=== PATIENT | male | born 1970 | race Caucasian/White ===

== ENCOUNTER 2018-12-10 14:31 | Observation (INO) | payer BC ==
[2018-12-10] MEDS ORDERED: ASPIRIN 81 MG PO STA (14:47)
[2018-12-10 15:10] LABS: Basophils % (A) 0 %; Eosinophils # (A) 0.4 k/uL (0-0.7); Eosinophils % (A) 5 %; HCT 44.6 % (39.0-53.0); HGB 14.9 gm/dL (13.0-17.5); Lymphocytes # (A) 2.2 k/uL (1.0-4.8); Lymphocytes % (A) 25 %; MCH 27.8 pg (25.0-35.0); MCHC 33.5 g/dL (31.0-37.0); Mean Platelet Volume 6.7; Monocytes # (A) 0.5 k/uL (0-1.0); Monocytes % (A) 6 %; Neutrophils # (A) 5.7 k/uL (1.3-7.7); Neutrophils % (A) 63 %; Platelet Count 321 k/uL (150-450); RBC 5.38 m/uL (4.30-5.90); RDW 12.9 % (11.5-15.5); WBC 9.1 k/uL (3.8-10.6)
--- NOTE | 2018-12-10 15:12 | XR ---
EXAMINATION TYPE: XR chest 2V DATE OF EXAM: 12/10/2018 COMPARISON: None INDICATION: Chest pain history of asthma TECHNIQUE: Frontal and lateral views of the chest are obtained. FINDINGS: The heart size is normal. The pulmonary vasculature is normal. The lungs are clear. IMPRESSION: 1. No acute pulmonary process.
[2018-12-10] MEDS ORDERED: NITROGLYCERIN OINT 1 INCH/GM PACKET TOPICAL STA (15:15)
--- NOTE | 2018-12-10 15:15 | ED ---
Chest Pain HPI - General Chief Complaint: Chest Pain Stated Complaint: chest pressure Time Seen by Provider: 12/10/18 14:47 Source: patient, RN notes reviewed Mode of arrival: wheelchair Limitations: no limitations - History of Present Illness Initial Comments: 48-year-old male presents emergency Department with chief complaint of chest pain. Patient states that he's had on-and-off symptoms for a while but has worsened recently. Saw Dr. Carlson his PCP today was given nitro and aspirin states that the nitro alleviated symptoms. Patient did have a heart cath several years ago secondary to strong family history Patient states he also has a history of hypertension former smoker. Patient denies diabetes states he has mildly elevated cholesterol does not take any current medications. - Related Data Home Medications Medication Instructions Recorded Confirmed Albuterol Inhaler [Ventolin Hfa 1 - 2 puff INHALATION RT-Q6H PRN 01/28/16 Inhaler] Lisinopril [Prinivil] 5 mg PO DAILY 01/28/16 12/10/18 Citalopram Hydrobromide [CeleXA] 20 mg PO HS 12/10/18 12/10/18 Allergies Allergy/AdvReac Type Severity Reaction Status Date / Time No Known Allergies Allergy Verified 12/10/18 15:35 Review of Systems ROS Statement: Those systems with pertinent positive or pertinent negative responses have been documented in the HPI. ROS Other: All systems not noted in ROS Statement are negative. EKG Findings - EKG Comments: EKG Findings:: EKG performed at 14:48 normal sinus rhythm with a rate of 85 IL 150 QRS 94 QT/QTC 382/454 Past Medical History Past Medical History: Asthma, Hypertension History of Any Multi-Drug Resistant Organisms: None Reported Past Surgical History: Appendectomy, Hernia Repair Past Psychological History: No Psychological Hx Reported Smoking Status: Former smoker Past Alcohol Use History: Rare Past Drug Use History: None Reported General Exam Limitations: no limitations General appearance: alert, in no apparent distress Head exam: Present: atraumatic, normocephalic, normal inspection Eye exam: Present: normal appearance, PERRL, EOMI. Absent: scleral icterus, conjunctival injection, periorbital swelling ENT exam: Present: normal exam, normal oropharynx, mucous membranes moist Neck exam: Present: normal inspection. Absent: tenderness, meningismus, lymphadenopathy Respiratory exam: Present: normal lung sounds bilaterally. Absent: respiratory distress, wheezes, rales, rhonchi, stridor Cardiovascular Exam: Present: regular rate, normal rhythm, normal heart sounds. Absent: systolic murmur, diastolic murmur, rubs, gallop, clicks GI/Abdominal exam: Present: soft, normal bowel sounds. Absent: distended, tenderness, guarding, rebound, rigid Course Vital Signs 12/10/18 14:37 Temperature 98.3 F Pulse Rate 95 Respiratory 16 Rate Blood Pressure 167/101 O2 Sat by Pulse 96 Oximetry Chest Pain MDM - [facility] 48-year-old male presented for chest pain. Patient had workup including lab comes chest x-ray and EKG. This is unremarkable though he does have strong family history pain and alleviated with nitro signed by PCP for admission. Patient placed on heparin with cardiology consult. Disposition Clinical Impression: Chest pain Disposition: ADMITTED IP TO THIS HOSP Condition: Fair Referrals: Serafin Carlson MD [Primary Care Provider] - 1-2 days
[2018-12-10 15:20] LABS: ALT 25 U/L (21-72); AST 25 U/L (17-59); Albumin 4.3 g/dL (3.5-5.0); Alkaline Phosphatase 77 U/L (38-126); Anion Gap 9 mmol/L; Blood Urea Nitrogen 9 mg/dL (9-20); Calcium 9.4 mg/dL (8.4-10.2); Carbon Dioxide 26 mmol/L (22-30); Chloride 104 mmol/L (98-107); Glucose 171 mg/dL (74-99); Magnesium 2.1 mg/dL (1.6-2.3); Partial Thromboplastin Time 25.1 sec (22.0-30.0); Potassium 3.8 mmol/L (3.5-5.1); Prothrombin Time 10.4 sec (9.0-12.0); Sodium 139 mmol/L (137-145); Total Bilirubin 0.5 mg/dL (0.2-1.3); Total Protein 7.8 g/dL (6.3-8.2)
[2018-12-10 15:32] LABS: Creatine Kinase 115 U/L (55-170)
[2018-12-10 15:45] LABS: Creatine Kinase MB 1.1 ng/mL (0.0-2.4); Troponin I <0.012 ng/mL (0.000-0.034)
[2018-12-10] MEDS ORDERED: HEPARIN SODIUM,PORCINE 5,000 UNIT/ML 1 ML VIAL IV ONE (15:50)
[2018-12-10] MEDS ORDERED: NITROGLYCERIN SL TABS 0.4 MG TAB SUBLINGUAL PRN (15:50)
[2018-12-10] MEDS ORDERED: HEPARIN SOD,PORK IN 0.45% NACL 25,000 UNIT in 0.45% NACL 1 250ML.BAG IV SCH (16:00)
[2018-12-10] MEDS ORDERED: LABETALOL SYRINGE 5 MG/ML IVP STA (16:04)
[2018-12-10] MEDS ORDERED: HEPARIN SODIUM,PORCINE 5,000 UNIT/ML 1 ML VIAL IV PRN (20:29)
[2018-12-10] MEDS ORDERED: ACETAMINOPHEN TAB 325 MG TAB PO PRN (21:00)
[2018-12-10 21:26] LABS: Creatine Kinase 98 U/L (55-170)
[2018-12-10 21:39] LABS: Creatine Kinase MB 1.1 ng/mL (0.0-2.4); Troponin I <0.012 ng/mL (0.000-0.034)
[2018-12-11 02:25] LABS: Creatine Kinase 93 U/L (55-170)
[2018-12-11 02:39] LABS: Creatine Kinase MB 1.1 ng/mL (0.0-2.4); Troponin I <0.012 ng/mL (0.000-0.034)
[2018-12-11 06:06] LABS: Mean Platelet Volume 6.2; Platelet Count 284 k/uL (150-450)
[2018-12-11 06:19] LABS: Cholesterol 182 mg/dL (<200); HDL Cholesterol 36 mg/dL (40-60); LDL Cholesterol,Calculated 93 mg/dL (0-99); Triglycerides 266 mg/dL (<150)
[2018-12-11] MEDS ORDERED: LISINOPRIL 5 MG TAB PO SCH (09:00)
[2018-12-11] MEDS ORDERED: LISINOPRIL 10 MG TAB PO SCH (09:00)
--- NOTE | 2018-12-11 10:55 | P.CRDCN ---
History of Present Illness History of present illness: This is a pleasant 48-year-old male past medical history significant for hypertension, asthma and obesity. He denies history of coronary artery disease and is never seen a practical nursing faculty for any reason. If necessary consultation for chest pain. He states for the previous few weeks he has been feeling a tight sensation in the midsternal region typically at night when he lays down in bed. Although he does also experience these episodes of tightness sometimes throughout the day. The discomfort does not radiate through to his back, down his arms, into his neck or jaw. He denies associated shortness of breath, dizziness, palpitations, diaphoresis, nausea or vomiting. He states the pain is a very mild tight sensation last anywhere from one to 2 minutes to possibly 30 minutes at the longest. He has not started to take any over-the- counter antacids for relief of this pain at [facility] on its own. He does not have a very active job however he states when he is physically exerting himself he does not notice any having any tightness in his chest. EKG reveals sinus mechanism with no acute ST or T wave abnormalities noted. Chest x-ray is negative for an acute cardiopulmonary process. Laboratory data reviewed, WBC 9.1, hemoglobin 14.9, platelets 284, sodium 139, potassium 3.8, creatinine 0.84, magnesium 2.1, cardiac enzymes negative 3, LDL 93 and HDL 36. Current cardiac medications include lisinopril 5 mg daily. He underwent a Cardiolite stress test and an echocardiogram in 2013 was negative for reversible cardiac ischemia with preserved LV systolic function ejection fraction 55-60%. At the time of my exam: CONSTITUTIONAL: Denies fever. Denies chills. EYES: Denies blurred vision. Denies vision changes. Denies eye pain. EARS, NOSE, MOUTH & THROAT: Denies headache. Denies sore throat. Denies ear pain. CARDIOVASCULAR: Denies chest pain. Denies shortness of breath. Denies orthopnea. Denies PND. Denies palpitations. RESPIRATORY: Denies cough. GASTROINTESTINAL: Denies abdominal pain. Denies diarrhea. Denies constipation. Denies nausea. Denies vomiting. MUSCULOSKELETAL: Denies myalgias. INTEGUMENTARY: Denies pruitis. Denies rash. NEUROLOGIC: Denies numbness. Denies tingling. Denies weakness. PSYCHIATRIC: Denies anxiety. Denies depression. ENDOCRINE: Denies fatigue. Denies weight change. Denies polydipsia. Denies polyurina. GENITOURINARY: Denies burning, hematuria or urgency with micturation. HEMATOLOGIC: Denies history of anemia. Denies bleeding. Blood pressure 146/90 heart rate 71 afebrile maintaining oxygen saturation on room air GENERAL: This is a 48-year-old male in no apparent distress at the time of my examination. Obese. HEENT: Head is atraumatic, normocephalic. Pupils are equal, round. Sclerae anicteric. Conjunctivae are clear. Mucous membranes of the mouth are moist. Neck is supple. There is no jugular venous distention. No carotid bruit is heard. LUNGS: Clear to auscultation no wheezes, rales or rhonchi. No chest wall tenderness is noted on palpation or with deep breathing. HEART: Regular rate and rhythm without murmurs, rubs or gallops. S1 and S2 heard. ABDOMEN: Soft, nontender. Bowel sounds are heard. No organomegaly noted. EXTREMITIES: No evidence of peripheral edema and no calf tenderness noted. VASCULAR: Radial and dorsalis pedis pulses palpated, no evidence of clubbing. NEUROLOGIC: Patient is awake, alert and oriented x3. ASSESSMENT Chest pain, atypical for angina. An acute coronary event has been ruled out. Hypertension, uncontrolled Hypertriglyceridemia Obesity, BMI 33 Asthma PLAN An acute coronary event has been ruled out. Increase lisinopril to 10 mg daily, first dose now. Obtain 2-D echocardiogram and Doppler study to assess cardiac structure and function. Perform stress echocardiogram to assess for stress-induced cardiac ischemia. Recommend diet and exercise for weight loss. If stress test is normal he is stable from a cardiac perspective, follow-up in the office with Dr. Stapleton in 3-4 weeks. Thank you kindly for this consultation. Nurse Practitioner note has been reviewed, I agree with a documented findings and plan of care. Patient was seen and examined. Past Medical History Past Medical History: Asthma, Hypertension History of Any Multi-Drug Resistant Organisms: None Reported Past Surgical History: Appendectomy, Hernia Repair Additional Past Surgical History / Comment(s): chago inguinal hernia repair Past Anesthesia/Blood Transfusion Reactions: Motion Sickness Additional Past Anesthesia/Blood Transfusion Reaction / Comment(s): motion sickness as child. has never recieved any blood transfusions, Smoking Status: Former smoker - Past Family History Mother Family Medical History: No Reported History Father Family Medical History: Coronary Artery Disease (CAD) Additional Family Medical History / Comment(s): 5 vessel cabg Medications and Allergies Home Medications Medication Instructions Recorded Confirmed Type Albuterol Inhaler [Ventolin Hfa 1 - 2 puff INHALATION RT-Q6H PRN 01/28/16 History Inhaler] Lisinopril [Prinivil] 5 mg PO DAILY 01/28/16 12/10/18 History Citalopram Hydrobromide [CeleXA] 20 mg PO HS 12/10/18 12/10/18 History Allergies Allergy/AdvReac Type Severity Reaction Status Date / Time No Known Allergies Allergy Verified 12/10/18 15:35 Physical Exam Vitals: Vital Signs Temp Pulse Pulse Resp BP BP BP 12/11/18 07:27 97.7 F 71 146/90 12/11/18 04:40 98.2 F 73 15 147/83 12/11/18 03:49 79 15 12/11/18 00:00 79 15 12/10/18 23:53 97.9 F 79 15 148/80 12/10/18 20:00 73 15 12/10/18 19:43 97.6 F 73 15 137/73 12/10/18 18:09 73 152/82 12/10/18 17:42 98.2 F 69 18 166/97 12/10/18 17:00 97.5 F L 64 18 151/93 12/10/18 16:34 70 18 148/95 12/10/18 16:20 97.8 F 77 18 140/100 12/10/18 16:03 80 18 174/113 12/10/18 14:37 98.3 F 95 16 167/101 Pulse Ox 12/11/18 07:27 97 12/11/18 04:40 97 12/11/18 03:49 12/11/18 00:00 12/10/18 23:53 96 12/10/18 20:00 12/10/18 19:43 98 12/10/18 18:09 12/10/18 17:42 97 12/10/18 17:00 96 12/10/18 16:34 98 12/10/18 16:20 96 12/10/18 16:03 97 12/10/18 14:37 96 Intake and Output 12/10/18 12/11/18 12/11/18 22:59 06:59 14:59 Intake Total 240 69.5 Balance 240 69.5 Intake: Intake, IV Titration 69.5 Amount Heparin Sod,Pork in 0.45% 69.5 NaCl 25,000 unit In 0.45 % NaCl 1 250ml.bag @ 10.5 UNITS/KG/HR 10 mls/hr IV .Q24H [facility] Rx#:[id number] Oral 240 Other: Voiding Method Toilet Toilet # Voids 1 Weight 97.2 kg Results 12/11/18 05:29 12/10/18 14:12 Cardiac Enzymes 12/10/18 12/10/18 12/10/18 Range/Units 14:12 14:12 20:25 AST 25 (17-59) U/L CK-MB (CK-2) 1.1 1.1 (0.0-2.4) ng/mL Troponin I <0.012 <0.012 (0.000-0.034) ng/mL 12/11/18 Range/Units 01:59 AST (17-59) U/L CK-MB (CK-2) 1.1 (0.0-2.4) ng/mL Troponin I <0.012 (0.000-0.034) ng/mL Coagulation 12/10/18 12/10/18 12/11/18 Range/Units 14:12 22:24 05:29 PT 10.4 (9.0-12.0) sec APTT 25.1 32.8 H 51.1 H (22.0-30.0) sec Lipids 12/11/18 Range/Units 05:29 Triglycerides 266 H (<150) mg/dL Cholesterol 182 (<200) mg/dL HDL Cholesterol 36 L (40-60) mg/dL CBC 12/10/18 12/11/18 Range/Units 14:12 05:29 WBC 9.1 (3.8-10.6) k/uL RBC 5.38 (4.30-5.90) m/uL Hgb 14.9 (13.0-17.5) gm/dL Hct 44.6 (39.0-53.0) % Plt Count 321 284 (150-450) k/uL Comprehensive Metabolic Panel 12/10/18 Range/Units 14:12 Sodium 139 (137-145) mmol/L Potassium 3.8 (3.5-5.1) mmol/L Chloride 104 (98-107) mmol/L Carbon Dioxide 26 (22-30) mmol/L BUN 9 (9-20) mg/dL Creatinine 0.84 (0.66-1.25) mg/dL Glucose 171 H (74-99) mg/dL Calcium 9.4 (8.4-10.2) mg/dL AST 25 (17-59) U/L ALT 25 (21-72) U/L Alkaline Phosphatase 77 (38-126) U/L Total Protein 7.8 (6.3-8.2) g/dL Albumin 4.3 (3.5-5.0) g/dL Current Medications Generic Name Dose Route Start Last Admin Trade Name Freq PRN Reason Stop Dose Admin Acetaminophen 650 mg 12/10/18 21:00 12/10/18 21:08 Tylenol Tab PO 650 mg Q6HR PRN Administration Fever and/ or Pain Aspirin 325 mg 12/11/18 09:00 Aspirin PO DAILY [facility] Citalopram Hydrobromide 20 mg 12/11/18 21:00 Celexa PO HS [facility] Heparin Sodium (Porcine) 0 unit 12/10/18 20:29 12/10/18 23:11 Heparin IV 4,000 unit PER PROTOCOL PRN Administration Low PTT Protocol Lisinopril 10 mg 12/11/18 09:00 Zestril PO DAILY [facility] Nitroglycerin 0.4 mg 12/10/18 15:50 Nitrostat SUBLINGUAL Q5M PRN Chest Pain Intake and Output 12/10/18 12/11/18 12/11/18 22:59 06:59 14:59 Intake Total 240 69.5 Balance 240 69.5 Intake: Intake, IV Titration 69.5 Amount Heparin Sod,Pork in 0.45% 69.5 NaCl 25,000 unit In 0.45 % NaCl 1 250ml.bag @ 10.5 UNITS/KG/HR 10 mls/hr IV .Q24H [facility] Rx#:[id number] Oral 240 Other: Voiding Method Toilet Toilet # Voids 1 Weight 97.2 kg 12/11/18 05:29 12/10/18 14:12
[2018-12-11] MEDS: ASPIRIN 325 MG TAB PO SCH (13:08)
--- NOTE | 2018-12-11 14:32 | P.STRESS ---
- Stress Test Note Stress Test Results/Findings: Exam Performed: stress echo exercise Exam Date: 12/11/18 Reason for Exam: Chest Pain Height: 5 ft 7 in Weight: 97.2 kg Protocol: Stress Echo Stage: 2 Duration of Exercise: 8:11 Resting Heart Rate: 88 Resting Blood Pressure: 163/110 Maximum Achieved Heart Rate: 149 Maximum Achieved Blood Pressure: 204/85 85% PMHR: 147 100% PMHR: 173 METS: 9.7 Technologist Comment: Stress Test Results/Findings: Baseline heart rate 88 beats a minute Baseline blood pressure elevated at 163/ 100 mmHg A central ECG shows normal sinus rhythm normal cardiac intervals Patient exercised on a Fawad protocol for 8 minutes 11 seconds achieving a peak heart rate of 149 beats a minute Hypertensive response to exercise peak blood pressure 204 mmHg Patient was short of breath No chest pain No ECG evidence for ischemia At baseline 2-D echo images showed normal LV size and systolic function without any segmental wall motion abnormalities At peak exercise there was excellent augmentation of overall LV contractility without development of any wall motion abnormalities At recovery regional and global LV systolic function remained normal Impression Average excess capacity shortness of breath associated with hypertensive response despite starting lisinopril 10 mg by mouth daily No ECG or echocardiographic evidence for ischemia Plan Eczema his antihypertensive therapy, low salt diet, weight reduction
--- NOTE | 2018-12-11 14:51 | P.HPIM ---
History of Present Illness 48-year-old male was sent to the emergency room per family physician with the report of intermittent chest pain mid sternal no nausea no diaphoresis. No history of coronary disease. Patient was found to be hypertensive lisinopril initiated will increase to twice a day patient has history of asthma and hypertension Review of Systems Cardiovascular: Reports chest pain Past Medical History Past Medical History: Asthma, Hypertension History of Any Multi-Drug Resistant Organisms: None Reported Past Surgical History: Appendectomy, Hernia Repair Additional Past Surgical History / Comment(s): chago inguinal hernia repair Past Anesthesia/Blood Transfusion Reactions: Motion Sickness Additional Past Anesthesia/Blood Transfusion Reaction / Comment(s): motion sickness as child. has never recieved any blood transfusions, Smoking Status: Former smoker - Past Family History Mother Family Medical History: No Reported History Father Family Medical History: Coronary Artery Disease (CAD) Additional Family Medical History / Comment(s): 5 vessel cabg Medications and Allergies Home Medications Medication Instructions Recorded Confirmed Type Albuterol Inhaler [Ventolin Hfa 1 - 2 puff INHALATION RT-Q6H PRN 01/28/16 History Inhaler] Citalopram Hydrobromide [CeleXA] 20 mg PO HS 12/10/18 12/10/18 History Lisinopril [Zestril] 10 mg PO DAILY #90 tab 12/11/18 Rx Allergies Allergy/AdvReac Type Severity Reaction Status Date / Time No Known Allergies Allergy Verified 12/10/18 15:35 Physical Exam Vitals: Vital Signs Temp Pulse Pulse Resp BP BP BP 12/11/18 12:00 98.2 F 95 18 146/83 166/97 12/11/18 07:27 97.7 F 71 146/90 12/11/18 04:40 98.2 F 73 15 147/83 12/11/18 03:49 79 15 12/11/18 00:00 79 15 12/10/18 23:53 97.9 F 79 15 148/80 12/10/18 20:00 73 15 12/10/18 19:43 97.6 F 73 15 137/73 12/10/18 18:09 73 152/82 12/10/18 17:42 98.2 F 69 18 166/97 12/10/18 17:00 97.5 F L 64 18 151/93 12/10/18 16:34 70 18 148/95 12/10/18 16:20 97.8 F 77 18 140/100 12/10/18 16:03 80 18 174/113 Pulse Ox 12/11/18 12:00 95 12/11/18 07:27 97 12/11/18 04:40 97 12/11/18 03:49 12/11/18 00:00 12/10/18 23:53 96 12/10/18 20:00 12/10/18 19:43 98 12/10/18 18:09 12/10/18 17:42 97 12/10/18 17:00 96 12/10/18 16:34 98 12/10/18 16:20 96 12/10/18 16:03 97 Intake and Output 12/10/18 12/11/18 12/11/18 22:59 06:59 14:59 Intake Total 240 69.5 Balance 240 69.5 Intake: Intake, IV Titration 69.5 Amount Heparin Sod,Pork in 0.45% 69.5 NaCl 25,000 unit In 0.45 % NaCl 1 250ml.bag @ 10.5 UNITS/KG/HR 10 mls/hr IV .Q24H [facility] Rx#:[id number] Oral 240 Other: Voiding Method Toilet Toilet Toilet # Voids 1 1 Weight 97.2 kg - Constitutional General appearance: obese - EENT Eyes: PERRLA - Respiratory Respiratory: bilateral: CTA - Cardiovascular Rhythm: regular - Gastrointestinal General gastrointestinal: soft - Integumentary Integumentary: normal - Neurologic Neurologic: CNII-XII intact - Musculoskeletal Musculoskeletal: gait normal - Psychiatric Psychiatric: A&O x's 3, appropriate affect, intact judgment & insight Results CBC & Chem 7: 12/11/18 05:29 12/10/18 14:12 Labs: Abnormal Lab Results - Last 24 Hours (Table) 12/10/18 12/10/18 12/11/18 Range/Units 14:12 22:24 05:29 APTT 32.8 H (22.0-30.0) sec Glucose 171 H (74-99) mg/dL Triglycerides 266 H (<150) mg/dL HDL Cholesterol 36 L (40-60) mg/dL 12/11/18 Range/Units 05:29 APTT 51.1 H (22.0-30.0) sec Glucose (74-99) mg/dL Triglycerides (<150) mg/dL HDL Cholesterol (40-60) mg/dL Chest x-ray: report reviewed Thrombosis Risk Factor Assmnt - Choose All That Apply Any of the Below Risk Factors Present?: Yes Each Factor Represents 1 point: Abnormal pulmonary function (COPD), Age 41-60 years, Obesity (BMI >25) Other Risk Factors: No Thrombosis Risk Factor Assessment Total Risk Factor Score: 3 Thrombosis Risk Factor Assessment Level: Moderate Risk Assessment and Plan Plan: Assessment Chest pain atypical troponins negative 3 stress test negative History of asthma Hyperlipidemia Hypertension Plan Continue consultation with cardiology regarding hypertension us and we'll increase lisinopril to twice a day plan to this keep patient for night
[2018-12-11 15:29] VITALS: BMI 33.5
[2018-12-11] MEDS ORDERED: CITALOPRAM HYDROBROMIDE 20 MG TAB PO SCH (21:00)
[2018-12-11] MEDS: LISINOPRIL 10 MG TAB PO SCH (22:51)
[2018-12-12] MEDS: LISINOPRIL 10 MG TAB PO SCH (09:30)
[2018-12-12] MEDS: ASPIRIN 325 MG TAB PO SCH (09:30)
[2018-12-12 12:15] VITALS: BP 159/83; PULSE 77; RESP 16; TEMP 97.7
--- NOTE | 2018-12-12 14:32 | P.PN ---
Subjective This is a pleasant 48-year-old male past medical history significant for hypertension, asthma and obesity. He denies history of coronary artery disease and is never seen a machine adjuster for any reason. He is seen and examined laying flat resting comfortably in bed. He was kept overnight for ongoing blood pressure management. He denies any further symptoms of chest pain. Also denies shortness of breath, dizziness or palpitations. Stress test yesterday was negative for stress induced ischemia. Lisinopril was increased to 10 mg BID. Blood pressure this morning 175/80 heart rate 74. GENERAL: This is a 48-year-old male in no apparent distress at the time of my examination. Obese. HEENT: Head is atraumatic, normocephalic. Pupils are equal, round. Sclerae anicteric. Conjunctivae are clear. Mucous membranes of the mouth are moist. Neck is supple. There is no jugular venous distention. No carotid bruit is heard. LUNGS: Clear to auscultation no wheezes, rales or rhonchi. No chest wall tenderness is noted on palpation or with deep breathing. HEART: Regular rate and rhythm without murmurs, rubs or gallops. S1 and S2 heard. EXTREMITIES: No evidence of peripheral edema and no calf tenderness noted. ASSESSMENT Chest pain, atypical for angina. An acute coronary event has been ruled out. Resolved. Hypertension, uncontrolled Hypertriglyceridemia Obesity, BMI 33 Asthma PLAN An acute coronary event has been ruled out and stress test is negative for ischemia. Stable from a cardiac perspective. Ongoing blood pressure management as an outpatient. Follow up appointment has been made with Dr. Martell in the office. Nurse Practitioner note has been reviewed, I agree with a documented findings and plan of care. Patient was seen and examined. Objective - Vital Signs Vital signs: Vital Signs Temp 97.9 F 12/12/18 08:00 Pulse 74 12/12/18 08:00 Resp 18 12/12/18 08:00 BP 175/80 12/12/18 08:00 Pulse Ox 97 12/12/18 08:00 Intake & Output 12/11/18 12/12/18 12/12/18 18:59 06:59 18:59 Intake Total 222 Balance 222 Weight 97.2 kg Intake: Oral 222 Other: Voiding Method Toilet Toilet Toilet # Voids 1 1 # Bowel Movements 1 - Labs CBC & Chem 7: 12/11/18 05:29 12/10/18 14:12
--- NOTE | 2018-12-12 14:44 | P.DS ---
Providers Date of admission: 12/10/18 15:53 Attending physician: Serafin Carlson Consults: 12/10/18 15:50 Consult Physician Urgent Consulting Provider: Fidel Haas Consult Reason/Comments: chest pain Do you want consulting provider notified?: Yes Primary care physician: Serafin Carlson [facility] Course: This is a pleasant 48 years old male with past medical history of hypertension which was controlled, presents of 1 week duration of intermittent chest pain, central about 3-4/10 in severity, nonspecific, nonradiating, not associated with dyspnea or nausea vomiting or dizziness. Patient has been evaluated by fitness technician, stress test was negative. His chest pain was resolved completely on the day of discharge and today he states that it is 0/10 in severity. Lisinopril been added for his blood pressure control. Cardiology cleared patient for discharge. Patient does not have any other symptoms. He states that he is ready for discharge home. Patient was instructed to follow up with his PCP and fitness technician and he agrees with the appointments made for him and their timing. Problems and management plan was discussed with the patient and he verbalized understanding and acceptance Patient was found stable and can be discharged home however he needs follow-up as an outpatient Gen: patient is a AAOx3, no distress CVS: S1-S2, RRR, no murmur Lungs: B/L CTA, no wheezing Abdomen: soft, no distention, no tenderness, positive bowel sounds Extremity: no leg edema or induration Time spent more than 35 minutes Patient Condition at Discharge: Fair Plan - Discharge Summary Discharge Rx Participant: Yes New Discharge Prescriptions: New Lisinopril [Zestril] 10 mg PO DAILY #90 tab Aspirin 325 mg PO DAILY #14 tab Nitroglycerin Sl Tabs [Nitrostat] 0.4 mg SUBLINGUAL Q5M PRN #20 tab PRN Reason: Chest Pain Continue Albuterol Inhaler [Ventolin Hfa Inhaler] 1 - 2 puff INHALATION RT-Q6H PRN PRN Reason: Shortness Of Breath Citalopram Hydrobromide [CeleXA] 20 mg PO HS Discontinued Lisinopril [Prinivil] 5 mg PO DAILY Discharge Medication List Albuterol Inhaler [Ventolin Hfa Inhaler] 1 - 2 puff INHALATION RT-Q6H PRN [History] Citalopram Hydrobromide [CeleXA] 20 mg PO HS 12/10/18 [History] Lisinopril [Zestril] 10 mg PO DAILY #90 tab 12/11/18 [Rx] Aspirin 325 mg PO DAILY #14 tab 12/12/18 [Rx] Nitroglycerin Sl Tabs [Nitrostat] 0.4 mg SUBLINGUAL Q5M PRN #20 tab 12/12/18 [Rx ] Follow up Appointment(s)/Referral(s): Serafin Carlson MD [Primary Care Provider] - 12/16/18 8:30 am Nasim Martell MD [STAFF PHYSICIAN] - 12/31/18 8:45 am Activity/Diet/Wound Care/Special Instructions: Cardiac diet Simple activities untill you see your doctor Discharge Disposition: HOME SELF-CARE
--- NOTE | 2018-12-13 08:50 | ECHOF ---
Referral Reason:cp MEASUREMENTS -------- HEIGHT: 170.2 cm WEIGHT: 97.1 kg BP: 175/80 IVSd: 1.3 cm (0.6 - 1.1) LVIDd: 5.0 cm (3.9 - 5.3) LVPWd: 1.4 cm (0.6 - 1.1) IVSs: 1.7 cm LVIDs: 2.9 cm LVPWs: 1.7 cm LA Diam: 2.8 cm (2.7 - 3.8) RVIDd: 3.1 cm (< 3.3) LAESV Index (A-L): 20.98 ml/m Ao Diam: 3.5 cm (2.0 - 3.7) LA Diam: 3.2 cm (2.7 - 3.8) AV Cusp: 2.2 cm (1.5 - 2.6) EPSS: 0.4 cm MV E Vladimir: 0.70 m/s MV DecT: 266 ms MV A Vladimir: 0.78 m/s MV E/A Ratio: 0.89 RAP: 5.00 mmHg RVSP: 13.69 mmHg MV EF SLOPE: 79.93 mm/s (70 - 150) MV EXCURSION: 18.81 mm (> 18.000) FINDINGS -------- Sinus rhythm. This was a technically adequate study. The left ventricular size is normal. There is moderate concentric left ventricular hypertrophy. O verall left ventricular systolic function is normal with, an EF between 55 - 60 %. The right ventricle is normal in size and function. Normal LA size by volume 22+/-6 ml/m2. The right atrium is normal in size. There is mild aortic valve sclerosis. There is no evidence of aortic regurgitation. There is no e vidence of aortic stenosis. The mitral valve leaflets are mildly thickened. There is trace to mild mitral regurgitation. Trace tricuspid regurgitation present. Right ventricular systolic pressure is normal at < 35 mmHg. There is no evidence of pulmonary hypertension. Trace/mild (physiologic) pulmonic regurgitation. The aortic root size is normal. Normal inferior vena cava with normal inspiratory collapse consistent with estimated right atrial pre ssure of 5 mmHg. There is no pericardial effusion. CONCLUSIONS -------- 1. Sinus rhythm. 2. This was a technically adequate study. 3. The left ventricular size is normal. 4. There is moderate concentric left ventricular hypertrophy. 5. Overall left ventricular systolic function is normal with, an EF between 55 - 60 %. 6. Normal LA size by volume 22+/-6 ml/m2. 7. There is mild aortic valve sclerosis. 8. The mitral valve leaflets are mildly thickened. 9. There is trace to mild mitral regurgitation. 10. Trace tricuspid regurgitation present. 11. Right ventricular systolic pressure is normal at < 35 mmHg. 12. There is no evidence of pulmonary hypertension. 13. Trace/mild (physiologic) pulmonic regurgitation. 14. The aortic root size is normal. 15. There is no pericardial effusion. GEOPHYSICAL DRAFTER: Rinku Khan RDCS
== END 2018-12-12 15:26 | disposition home or self-care (01) ==
LOC: EC 14:31 → 1SOBS 15:53 → INTOOBSV 15:53
PROVIDERS: ADMIT Family Medicine; ATTEND Family Medicine
DX: R07.89 Other chest pain (principal); J45.909 Unspecified asthma, uncomplicated; I10 Essential (primary) hypertension; E78.1 Pure hyperglyceridemia; E78.5 Hyperlipidemia, unspecified; E66.9 Obesity, unspecified; Z68.33 Body mass index [BMI] 33.0-33.9, adult; Z79.899 Other long term (current) drug therapy; Z87.891 Personal history of nicotine dependence; Z90.49 Acquired absence of other specified parts of digestive tract; Z82.49 Family history of ischemic heart disease and other diseases of the circulatory system
CPT/HCPCS: 96366 ×2; 96376 ×2; 96365; 96375; 99285; 36415; 93005; 93306; 93351; 80061; 80053; 82550 ×2; 82553 ×2; 83735; 84484 ×2; 85025; 85049; 85610; 85730 ×2; 71046; G0378 ×3; J1644 ×2

== ENCOUNTER 2018-12-25 16:33 | Observation (INO) | payer BC ==
[2018-12-25] MEDS ORDERED: SODIUM CHLORIDE 0.9% 1,000 ML IV STA (18:52)
[2018-12-25] MEDS ORDERED: ASPIRIN 81 MG PO STA (18:52)
--- NOTE | 2018-12-25 18:55 | ED ---
Chest Pain HPI - General Chief Complaint: Chest Pain Stated Complaint: ABNORMAL EKG Time Seen by Provider: 12/25/18 18:27 Source: patient, RN notes reviewed, old records reviewed Mode of arrival: ambulatory Limitations: no limitations - History of Present Illness Initial Comments: Patient is a 48-year-old male who presents today from primary care physician's office due to persistent dull chest pain. He also has been complaining of intermittent frontal headache. Patient states that he was admitted approximately 2 weeks ago and evaluated for chest pain. He did see cardiology at that time. Patient reports he went today to follow up with his primary care provider continued complaint chest pain. They sent him here for an abnormal EKG. Patient states that his chest pain is 0 out of 10 at this time. When it does occur it seems to be exertional and last for over 5 minutes. Patient's also played of this intermittent frontal headache. He denies any neurological deficits or weakness. - Related Data Home Medications Medication Instructions Recorded Confirmed Albuterol Inhaler [Ventolin Hfa 1 - 2 puff INHALATION RT-Q6H PRN 01/28/16 Inhaler] Citalopram Hydrobromide [CeleXA] 20 mg PO DAILY 12/10/18 12/25/18 ALPRAZolam [Xanax] 0.5 mg PO DAILY PRN 12/25/18 12/25/18 Lisinopril [Zestril] 20 mg PO DAILY 12/25/18 12/25/18 Previous Rx's Medication Instructions Recorded Aspirin 325 mg PO DAILY #14 tab 12/12/18 Nitroglycerin Sl Tabs [Nitrostat] 0.4 mg SUBLINGUAL Q5M PRN #20 tab 12/12/18 Allergies Allergy/AdvReac Type Severity Reaction Status Date / Time No Known Allergies Allergy Verified 12/25/18 19:01 Review of Systems ROS Statement: Those systems with pertinent positive or pertinent negative responses have been documented in the HPI. ROS Other: All systems not noted in ROS Statement are negative. EKG Findings - EKG Comments: EKG Findings:: EKG performed at 1659 shows normal sinus rhythm minimal voltage criteria for LVH. May be normal variant. Borderline EKG. Ventricular rate of 73 bpm. Intervals 162 ms. QRS duration 90 ms. QT QTC 392/431 ms. Past Medical History Past Medical History: Asthma, Hypertension History of Any Multi-Drug Resistant Organisms: None Reported Past Surgical History: Appendectomy, Hernia Repair Additional Past Surgical History / Comment(s): chago inguinal hernia repair Past Anesthesia/Blood Transfusion Reactions: Motion Sickness Additional Past Anesthesia/Blood Transfusion Reaction / Comment(s): motion sickness as child. has never recieved any blood transfusions, Past Psychological History: No Psychological Hx Reported Smoking Status: Former smoker Past Alcohol Use History: None Reported Past Drug Use History: None Reported - Past Family History Mother Family Medical History: No Reported History Father Family Medical History: Coronary Artery Disease (CAD) Additional Family Medical History / Comment(s): 5 vessel cabg General Exam - General Exam Comments Initial Comments: His is a 48-year-old male. Alert and oriented. No significant distress. Limitations: no limitations General appearance: alert, in no apparent distress Head exam: Present: atraumatic, normocephalic, normal inspection Eye exam: Present: normal appearance, PERRL, EOMI. Absent: scleral icterus, conjunctival injection, periorbital swelling ENT exam: Present: normal exam, mucous membranes moist Neck exam: Present: normal inspection. Absent: tenderness, meningismus, lymphadenopathy Respiratory exam: Present: normal lung sounds bilaterally. Absent: respiratory distress, wheezes, rales, rhonchi, stridor Cardiovascular Exam: Present: regular rate, normal rhythm, normal heart sounds. Absent: systolic murmur, diastolic murmur, rubs, gallop, clicks GI/Abdominal exam: Present: soft, normal bowel sounds. Absent: distended, tenderness, guarding, rebound, rigid Extremities exam: Present: normal inspection, full ROM, normal capillary refill. Absent: tenderness, pedal edema, joint swelling, calf tenderness Back exam: Present: normal inspection Neurological exam: Present: alert, oriented X3, CN II-XII intact Expanded Patient oriented to: Present: person, place, time Speech: Present: fluid speech Cranial nerves: EOM's Intact: Normal Cerebellar function: Finger to Nose: Normal Upper motor neuron: Pronator Drift: Normal Sensory exam: Upper Extremity Light Touch: Normal, Lower Extremity Light Touch: Normal Motor strength exam: RUE: 5, LUE: 5, RLE: 5, LLE: 5 Eye Response: (4) open spontaneously Motor Response: (6) obeys commands Verbal Response: (5) oriented Yan Total: 15 Psychiatric exam: Present: normal affect, normal mood Skin exam: Present: warm, dry, intact, normal color. Absent: rash Course Vital Signs 12/25/18 16:50 Temperature 98 F Pulse Rate 84 Respiratory 18 Rate Blood Pressure 141/95 O2 Sat by Pulse 97 Oximetry Chest Pain MDM - MDM Patient is a 48-year-old male present emergency department today for reevaluation for chest pain. Had an outpatient EKG at the office that was reportedly abnormal. Upon arrival to the emergency department we cannot locate this previous EKG that he's had. His EKG at this time shows no significant changes. He continues to complain of intermittent dull chest pain. He was admitted to weeks ago for cardiology. According to the patient's EC wants him admitted for repeat evaluation by cardiology. He hasn't been attending and CT this time is negative for any acute process. He is resting heavily bed. We'll admit the Patient for observation for repeat cardiac enzymes. Disposition Clinical Impression: Chest pain Disposition: ADMITTED IP TO THIS HOSP Condition: Stable Is patient prescribed a controlled substance at d/c from ED?: No Referrals: Serafin Carlson MD [Primary Care Provider] - 1-2 days Time of Disposition: 21:48
[2018-12-25 19:32] LABS: Basophils # (A) 0.1 k/uL (0-0.2); Basophils % (A) 1 %; Eosinophils # (A) 0.5 k/uL (0-0.7); Eosinophils % (A) 5 %; HCT 44.1 % (39.0-53.0); HGB 15.3 gm/dL (13.0-17.5); Lymphocytes # (A) 3.2 k/uL (1.0-4.8); Lymphocytes % (A) 31 %; MCH 28.7 pg (25.0-35.0); MCHC 34.6 g/dL (31.0-37.0); MCV 82.9 fL (80.0-100.0); Monocytes # (A) 0.6 k/uL (0-1.0); Monocytes % (A) 6 %; Neutrophils # (A) 5.8 k/uL (1.3-7.7); Neutrophils % (A) 56 %; Platelet Count 325 k/uL (150-450); RBC 5.32 m/uL (4.30-5.90); RDW 12.7 % (11.5-15.5); WBC 10.5 k/uL (3.8-10.6)
--- NOTE | 2018-12-25 19:33 | XR ---
EXAMINATION TYPE: XR chest 2V DATE OF EXAM: 12/25/2018 COMPARISON: 12/10/2018 HISTORY: Headache and dizziness TECHNIQUE: Frontal and lateral views of the chest are obtained. FINDINGS: Heart and mediastinum are normal. Lungs are clear. Diaphragm is normal. Bony thorax appear s normal. IMPRESSION: Normal chest. No change.
--- NOTE | 2018-12-25 19:35 | CT ---
EXAMINATION TYPE: CT brain wo con DATE OF EXAM: 12/25/2018 COMPARISON: 01/28/2016 HISTORY: Headache and hypertension. CT DLP: 1133.4 mGycm. Automated Exposure Control for Dose Reduction was Utilized. TECHNIQUE: CT scan of the head is performed without contrast. FINDINGS: Ventricles and sulci appear normal. There is no mass effect nor midline shift. There is no sign of intracranial hemorrhage. Calvarium is intact. IMPRESSION: Negative CT scan of the brain.
[2018-12-25 19:38] LABS: INR 0.9 (<1.2); Partial Thromboplastin Time 26.2 sec (22.0-30.0); Prothrombin Time 10.2 sec (9.0-12.0)
[2018-12-25 19:45] LABS: ALT 39 U/L (21-72); AST 31 U/L (17-59); Albumin 4.4 g/dL (3.5-5.0); Alkaline Phosphatase 78 U/L (38-126); Amylase 56 U/L (30-110); Anion Gap 11 mmol/L; Blood Urea Nitrogen 15 mg/dL (9-20); Calcium 9.6 mg/dL (8.4-10.2); Carbon Dioxide 23 mmol/L (22-30); Chloride 105 mmol/L (98-107); Glucose 95 mg/dL (74-99); Lipase 133 U/L (23-300); Magnesium 2.1 mg/dL (1.6-2.3); Potassium 4.4 mmol/L (3.5-5.1); Sodium 139 mmol/L (137-145); Total Bilirubin 0.6 mg/dL (0.2-1.3); Total Protein 8.2 g/dL (6.3-8.2)
[2018-12-25 19:50] LABS: Creatine Kinase 75 U/L (55-170)
[2018-12-25 20:04] LABS: Creatine Kinase MB 0.6 ng/mL (0.0-2.4); Troponin I <0.012 ng/mL (0.000-0.034)
[2018-12-25] MEDS ORDERED: NITROGLYCERIN SL TABS 0.4 MG TAB SUBLINGUAL PRN ×2 (21:48→21:50)
[2018-12-25] MEDS ORDERED: ALPRAZolam 0.5 MG TAB PO PRN (21:50)
[2018-12-25 23:26] VITALS: BMI 32.1
[2018-12-26 01:36] LABS: Creatine Kinase 69 U/L (55-170)
[2018-12-26 01:49] LABS: Creatine Kinase MB 0.5 ng/mL (0.0-2.4); Troponin I <0.012 ng/mL (0.000-0.034)
[2018-12-26] MEDS ORDERED: ALBUTEROL NEBULIZED 2.5 MG/3 ML INHALATION PRN (01:56)
[2018-12-26] MEDS ORDERED: TEMAZEPAM 15 MG CAP PO PRN (01:56)
[2018-12-26 07:12] LABS: Creatine Kinase 67 U/L (55-170)
[2018-12-26 07:16] LABS: Cholesterol 193 mg/dL (<200); HDL Cholesterol 27 mg/dL (40-60); LDL Cholesterol,Calculated 114 mg/dL (0-99); Triglycerides 259 mg/dL (<150)
[2018-12-26 07:24] LABS: Creatine Kinase MB 0.5 ng/mL (0.0-2.4); Troponin I <0.012 ng/mL (0.000-0.034)
[2018-12-26] MEDS ORDERED: PANTOPRAZOLE 40 MG TABLET PO SCH (07:30)
[2018-12-26 08:45] VITALS: RESP 18
--- NOTE | 2018-12-26 08:54 | HP ---
HISTORY AND PHYSICAL CHIEF COMPLAINT: Chest pain. HISTORY OF PRESENT ILLNESS: This 48-year-old gentleman with a past medical history of multiple medical problems including history of asthma, hypertension, appendectomy being followed by Dr. Serafin Carlson in the outpatient setting was complaining of chest pressure which is in the anterior part felt for the last 2 weeks on and off, which was felt as a rather dull ache without radiation symptoms and the patient taken to [facility] for further evaluation and treatment. Patient also complaining of right-sided headache. EKG showed minimal ST-T changes. Otherwise, there is no history of any fever, rigors, chills. No history of headache, loss of consciousness or seizures at this time. D- dimer is. Troponins are negative. There is no history of fever, rigors, chills. PAST MEDICAL HISTORY: Asthma, hypertension, history of appendectomy, hernia repair. MEDICATIONS: Medications are home medications are: 1. Nitroglycerin 0.4 sublingual p.r.n. 2. Zestril 20 mg p.o. daily. 3. Celexa 20 mg daily. 4. Aspirin 325 mg daily. 5. Albuterol p.r.n. 6. Xanax 0.5 daily p.r.n. ALLERGIES: Allergies are none. FAMILY HISTORY: History of heart disease in father in mid 50s. SOCIAL HISTORY: Previous history of smoking, alcohol, tranquilizers. REVIEW OF SYSTEMS: ENT: As mentioned earlier. CARDIOVASCULAR SYSTEM: As mentioned earlier. RESPIRATORY SYSTEM: No cough or hemoptysis. GI: No nausea, vomiting. : No dysuria. NERVOUS SYSTEM: No numbness or weakness. ALLERGY/IMMUNOLOGY No asthma or hayfever. MUSCULOSKELETAL: As mentioned earlier. HEMATOLOGY/ONCOLOGY: No history of anemia. ENDOCRINE: No history of diabetes mellitus or hypothyroidism. CONSTITUTIONAL: As mentioned earlier. DERMATOLOGY: Negative. RHEUMATOLOGY: Negative. PSYCHIATRY: As mentioned earlier. PHYSICAL EXAMINATION: The patient is alert and oriented x3. Pulse 83, blood pressure 151/89, respirations 15, temperature 98.2, pulse ox 96% on room air. HEENT: Conjunctivae normal. Oral mucosa moist. Neck is no jugular venous distention. No carotid bruit. No lymph node enlargement. CARDIOVASCULAR: S1, S2 muffled. No S3, no S4. RESPIRATORY: Breath sounds diminished at the bases. Bilateral scattered rhonchi and crackles. Breathing efforts are normal. ABDOMEN: Soft, nontender. No mass palpable. LEGS: No edema. No swelling. NERVOUS SYSTEM: Higher function as mentioned. Moves all 4 limbs. No focal motor deficits. LYMPHATICS: No lymphadenopathy of the neck, axillae or groin. JOINTS: No active deforming arthropathy. SKIN: No ulcer, rash or bleeding. LABS: CBC within normal limits. CMP within n. ASSESSMENT: 1. Chest pain, possible unstable angina. 2. Headache for evaluation. 3. History of asthma. 4. Hypertension. 5. History of hernia repair. 6. History of bilateral inguinal hernia repair. 7. Remote history of nicotine dependence. 8. Family history of coronary artery disease. RECOMMENDATIONS AND DISCUSSION: This 48-year-old gentleman who presented with multiple complex medical issues, will monitor the patient closely. Continue with symptomatic treatment. IV heparin. Troponin to rule out myocardial infarction. Otherwise cardiology consultation possible stress test. Guarded prognosis because of multiple complex medical issues. Further recommendations to follow. A copy of dictation forwarded to Dr. Serafin Carlson who is the primary physician. Will resume the home medications as well. MMODL / IJN: [id number] / MTDD
[2018-12-26] MEDS ORDERED: LISINOPRIL 10 MG TAB PO SCH (09:00)
[2018-12-26] MEDS ORDERED: ASPIRIN 325 MG TAB PO SCH ×2 (09:00)
[2018-12-26] MEDS ORDERED: CITALOPRAM HYDROBROMIDE 20 MG TAB PO SCH (09:00)
[2018-12-26] MEDS ORDERED: amLODIPine 5 MG TAB PO SCH (10:00)
[2018-12-26 12:08] VITALS: BP 159/74; PULSE 86; TEMP 97.5
--- NOTE | 2018-12-26 12:18 | CONS ---
CONSULTATION Mr. Villavicencio is a 48-year-old gentleman who is seen for the evaluation of chest pain. Patient gives a history that he went to the primary care office because of the history of persistent intermittent chest pressure and also was complaining of headache. The patient came to the emergency room. EKG was unremarkable and patient is admitted. This patient was admitted 2 or 3 weeks ago with intermittent chest discomfort and hypertension. The patient was started on medications and he had a echocardiogram and the stress echocardiographic study was normal. This chest pressure is not related to exertion. There is no prior history of myocardial infarction. HOME MEDICATIONS: Patient home medications include Xanax, Celexa, Zestril 20 mg daily, aspirin. REVIEW OF THE SYSTEM: Unremarkable. PAST MEDICAL HISTORY: Past medical history includes history of appendicectomy. PHYSICAL EXAMINATION: Physical examination at present reveals a 48-year-old gentleman who does not appear to be in any acute distress. The patient's blood pressure is 134/76 mmHg, heart rate is 65 per minute. Head/ENT examination is negative. Neck is supple. There is no increase in jugular venous pressure. Both the carotid pulses are felt. There is no bruit. Chest is symmetrical. HEART: The PMI is not felt. First and second heart sounds are normal. There is no evidence of any murmur. Lungs are clinically clear to auscultation and percussion. Abdomen is negative. EXTREMITIES: Peripheral pulsations are 2+. EKG shows normal sinus rhythm without any acute ischemic changes. Cardiac enzymes are normal. FINAL IMPRESSION: Intermittent chest discomfort suggestive of atypical chest pain. Patient's recent stress test and echocardiogram were normal. The patient's blood pressure is labile. I will add amlodipine 5 mg daily. The patient can be discharged home in view of the recent negative stress test and follow up with the rolled oats mill operator in the office. MMODL / IJN: [id number] /
--- NOTE | 2018-12-27 09:46 | DS ---
DISCHARGE SUMMARY DATE OF SERVICE: 12/26/2018 FINAL DIAGNOSES: 1. Chest pain, probably musculoskeletal, myocardial infarction ruled out. 2. Recent negative stress test. 3. Headache, improved. 4. History of asthma. 5. Hypertension. 6. History of hernia repair. 7. Bilateral inguinal repair. 8. Remote history of nicotine dependence. 9. Family history of coronary artery disease. DISCHARGE DISPOSITION: The patient will be discharged in stable condition with guarded prognosis. Discharge cleared by Cardiology. HISTORY OF PRESENT ILLNESS: This 48-year-old gentleman was admitted with chest pain, myocardial infarction ruled out. Patient had a recent negative stress test. The patient improved significantly with symptomatic treatment. Care was coordinated. On exam, vital signs stable. Abdomen soft. Central nervous system: No focal deficits. The patient was evaluated by Cardiology and Dr. Hay recommend the patient be discharged and follow up in the outpatient setting. CT scan of the brain was done showed no acute abnormality. DISCHARGE MEDICATIONS AND ADVICE: 1. Diet is cardiac diet. 2. Activity limited until followup. 3. Follow up with Dr. Carlson in 2-3 days. 4. Follow up to Dr. Danilo Hay as recommended. MEDICATIONS: 1. Albuterol 1-2 puffs q.6h p.r.n. 2. Xanax 0.5 daily p.r.n. 3. Celexa 20 mg. 4. Zestril 20 mg. 5. Norvasc 5 mg p.o. daily. 6. Aspirin 320 mg p.o. daily. 7. Lipitor 10 mg q.h.s. 8. Nitrostat p.r.n. Once again, the patient being discharged in stable condition with guarded prognosis. MMODL / IJN: [id number] /
== END 2018-12-26 16:20 | disposition home or self-care (01) ==
LOC: EC 16:33 → 1SOBS 22:37
PROVIDERS: ADMIT Hospitalist; ATTEND Hospitalist
DX: R07.89 Other chest pain (principal); R51 Headache; J45.909 Unspecified asthma, uncomplicated; I10 Essential (primary) hypertension; R94.31 Abnormal electrocardiogram [ECG] [EKG]; Z79.82 Long term (current) use of aspirin; Z79.899 Other long term (current) drug therapy; Z87.891 Personal history of nicotine dependence; Z90.49 Acquired absence of other specified parts of digestive tract; Z82.49 Family history of ischemic heart disease and other diseases of the circulatory system
CPT/HCPCS: 96361 ×2; 96360; 99285; 36415; 83880; 80061; 80053; 82150; 82550 ×2; 82553 ×2; 83690; 83735; 84484 ×2; 85025; 85610; 85730; 71046; 70450; G0378 ×2

== ENCOUNTER → 2019-12-16 | Outpatient (CLI) | payer BC ==
--- NOTE | 2019-12-16 12:56 | CONS ---
CONSULTATION DATE OF SERVICE: 12/16/2019 A 49-year-old gentleman who has been evaluated in [facility] for obstructive sleep apnea-hypopnea syndrome. HISTORY OF PRESENT ILLNESS/SLEEP-WAKE EVALUATION: Patient had been diagnosed with severe obstructive sleep apnea in 2010. At that time, apnea-hypopnea index 37.8. The patient was recommended treatment with CPAP at the pressure of 14 cm of water. Patient has difficulties to tolerate CPAP, was not able to use it and quit treatment in several months soft after using CPAP. Presently, his sleep schedule around midnight until 9-10 in the morning. He does have problem with falling asleep, has TV set in bedroom. Usually, sleeps on the side position. He snores, has a witnessed episodes of stopped breathing during sleep. He wakes up from sleep 4 times with episodes of nocturia. Has symptoms of restless legs, sweating. In the morning, patient wakes up tired, falling asleep during the day. Carson Sleepiness Scale significantly increased to 12. Positive history of episodes of depression, anxiety, and sexual dysfunction. PAST MEDICAL HISTORY: Positive for asthma, hypertension, anxiety, depression, prediabetes. PAST SURGICAL HISTORY: Hernia repair, appendectomy. MEDICATIONS: Metformin, lisinopril, hydrochlorothiazide, amlodipine, alprazolam, citalopram, Ventolin inhaler. FAMILY HISTORY: Heart problems last month. REVIEW OF SYSTEMS: Multiple awakenings from sleep, tiredness and sleepiness during the day. PHYSICAL EXAM: gentleman without distress. BP 164/95, HR 84, RR 16, height 5 and 7, weight 207.8, temperature 97.8, oxygen saturation at room air 95%. OROPHARYNX: Extremely low position of soft palate, Mallampati 4 with significant restriction of nasal breathing, wide neck 18 inches in circumference. LUNGS: Obese NECK: Supple, no JVD. Thyroid is not palpable. HEART: S1, S2 regular. No murmurs, gallops, or rubs. ABDOMEN: Soft and nontender. Bowel sounds are present. No organomegaly appreciated. EXTREMITIES: No clubbing or cyanosis. RESIDENTIAL TECH: Awake, alert, and oriented X3. Cranial nerves 2 to 7 intact. There is no fasciculation or atrophy. noted. No focal deficits observed. IMPRESSION: 1. Loud snoring, witnessed episodes of stopped breathing during the sleep, extremely low position of soft palate, Mallampati 4, wide neck,.sleepiness. 2. History of obstructive sleep apnea in the past. Obstructive sleep apnea-hypopnea syndrome. 3. Obesity, body mass index 32.4. 4. Hypertension, not on mood control with 3 medications. 5. Anxiety. 6. Depression. 7. Diabetes. 8. Status post hernia repair. 9. Status post appendectomy. PLAN: 1. Polysomnography for evaluation of patient's breathing during sleep. 2. CPAP/BiPAP titration if sleep study confirms obstructive sleep apnea-hypopnea syndrome. 3. Preferable position during sleep on the side. 4. No driving if patient feels any sleepiness. 5. I will see patient for follow up visit and to explain results of testing and following plan. Thank you very much for referring this patient for consultation, for allowing me to participate in management of your patient sincerely and remaining. Sincerely, Nicolas Jonas MD, PhD, FAASM Diplomat of [employer] [facility] [place] MMODL / GRISELN: [id number] /
== END | disposition home or self-care (01) ==
LOC: SLEEP 11:15
PROVIDERS: ATTEND Internal Medicine
DX: G47.33 Obstructive sleep apnea (adult) (pediatric) (principal); E66.9 Obesity, unspecified; Z68.32 Body mass index [BMI] 32.0-32.9, adult; I10 Essential (primary) hypertension; F41.9 Anxiety disorder, unspecified; F32.9 Major depressive disorder, single episode, unspecified; E11.9 Type 2 diabetes mellitus without complications; Z98.890 Other specified postprocedural states; Z79.84 Long term (current) use of oral hypoglycemic drugs; Z79.899 Other long term (current) drug therapy
CPT/HCPCS: 99211

== ENCOUNTER → 2024-11-27 | Outpatient (CLI) | payer BC ==
--- NOTE | 2024-11-27 17:46 | CA ---
Transthoracic Echo Report Name: Jomar Villavicencio Age: 54 Gender: M : 1970 Exam Date: 11/27/2024 13:02 Exam Location: [facility] Ht (in): 67 Wt (lb): 215 Ordering Physician: Nigel Win DO Attending/Referring Phys: Lala Boucher [facility] Osteopathic Neurologist Jill Isabel RDCS Procedure CPT: Indications: R94.31 ABNORMAL EKG R07.89 CHEST PRESSURE Cardiac Hx: Technical Quality: Good Contrast 1: Total Dose (mL): Contrast 2: Total Dose (mL): MEASUREMENTS (Male / Female) Normal Values 2D ECHO LV Diastolic Diameter PLAX 5.1 cm 4.2 - 5.9 / 3.9 - 5.3 cm LV Systolic Diameter PLAX 3.3 cm IVS Diastolic Thickness 0.9 cm 0.6 - 1.0 / 0.6 - 0.9 cm LVPW Diastolic Thickness 1.1 cm 0.6 - 1.0 / 0.6 - 0.9 cm LV Relative Wall Thickness 0.4 LVOT Diameter 2.3 cm LV Diastolic Volume MOD BP 159.1 cm??? 67 - 155 / 56 - 104 cm??? LV Systolic Volume MOD BP 55.5 cm??? 22 - 58 / 19 - 49 cm??? LV Ejection Fraction MOD BP 65.1 % >= 55 % LV Cardiac Index MOD BP 3558.8 cm???/min???m??? LV Diastolic Volume MOD 4C 180.6 cm??? LV Systolic Volume MOD 4C 65.0 cm??? LV Ejection Fraction MOD 4C 64.0 % LV Cardiac Index MOD 4C 3972.9 cm???/min???m??? LV Diastolic Length 4C 9.5 cm LV Systolic Length 4C 7.6 cm LV Diastolic Volume MOD 2C 139.7 cm??? LV Systolic Volume MOD 2C 47.3 cm??? LV Ejection Fraction MOD 2C 66.1 % LV Cardiac Index MOD 2C 3174.9 cm???/min???m??? LV Diastolic Length 2C 9.6 cm LV Systolic Length 2C 7.6 cm LA Volume 45.7 cm??? 18 - 58 / 22 - 52 cm??? LA Volume Index 20.9 cm???/m??? 16 - 28 cm???/m??? DOPPLER AV Peak Velocity 139.1 cm/s AV Peak Gradient 7.7 mmHg AV Mean Velocity 97.3 cm/s AV Mean Gradient 4.1 mmHg AV Velocity Time Integral 25.6 cm LVOT Peak Velocity 120.3 cm/s LVOT Peak Gradient 5.8 mmHg LVOT Velocity Time Integral 22.5 cm LVOT Stroke Volume 92.1 cm??? LVOT Stroke Volume Index 44.2 ml/m??? LVOT Cardiac Index 3163.4 cm???/min???m??? AV Area Cont Eq vti 3.6 cm??? AV Area Cont Eq pk 3.5 cm??? MV Area PHT 3.6 cm??? Mitral E Point Velocity 50.2 cm/s Mitral A Point Velocity 58.6 cm/s Mitral E to A Ratio 0.9 MV Deceleration Time 212.8 ms PV Peak Velocity 99.4 cm/s PV Peak Gradient 4.0 mmHg FINDINGS Left Ventricle Left ventricular ejection fraction is estimated at 55 to 60 %. Normal left ventricular systolic function with no obvious regional wall motion abnormalities. Left ventricular cavity size normal. Right Ventricle Normal right ventricular size and function. Unable to estimate the right ventricular systolic pressure. Right Atrium Normal right atrial size. Left Atrium Normal left atrial size. Mitral Valve Structurally normal mitral valve. No evidence for mitral valve prolapse. No mitral stenosis. Mild mitral regurgitation. Aortic Valve Trileaflet aortic valve. No aortic valve stenosis or regurgitation. Tricuspid Valve Structurally normal tricuspid valve. No tricuspid stenosis. Trace tricuspid regurgitation. Pulmonic Valve Structurally normal pulmonic valve. No pulmonic stenosis. Trace pulmonic regurgitation. Pericardium No pericardial effusion. Aorta Normal size aortic root and proximal ascending aorta. CONCLUSIONS 1. Normal left ventricular size and systolic function 2. Mild mitral regurgitation Previewed by: Dr. Selena Llamas MD (Electronically Signed) Final Date: 27 November 2024 17:45
== END | disposition home or self-care (01) ==
LOC: RADECHMAIN 12:47
PROVIDERS: ATTEND Internal Medicine
DX: R94.31 Abnormal electrocardiogram [ECG] [EKG] (principal); R07.89 Other chest pain
CPT/HCPCS: 93306

== ENCOUNTER 2024-12-04 09:44 | Day surgery (SDC) | payer BC ==
[2024-12-01 15:42] VITALS: BMI 33.6
[2024-12-04] MEDS: IV FLUID CONTINUATION 1,000 ML IV ONE (10:49)
[2024-12-04 10:57] VITALS: TEMP 98
[2024-12-04] MEDS: LACTATED RINGERS 1,000 ML IV SCH (11:08)
[2024-12-04 11:09] LABS: Glucose,Whole Blood 137 mg/dL (70-110)
[2024-12-04] MEDS ORDERED: PROPOFOL 10 MG/ML 20 ML VIAL IV ONE (12:10)
[2024-12-04] MEDS ORDERED: LIDOCAINE 1% INJ 10MG/ML (20 ML MDV) ONE (12:10)
--- NOTE | 2024-12-04 12:26 | P.PCN ---
Date of Procedure: 12/04/24 Procedure(s) Performed: BRIEF HISTORY: Patient is a 54-year-old pleasant right knee scheduled for an elective colonoscopy as a part of screening for colon cancer. PROCEDURE PERFORMED: Colonoscopy. PREOPERATIVE DIAGNOSIS: Screening for colon cancer. IV sedation per Anesthesia. PROCEDURE: After informed consent was obtained, the patient, was brought into the endoscopy unit. IV sedation was administered by Anesthesia under continuous monitoring. Digital rectal examination was normal. Initially the Olympus CF-160 flexible video colonoscope was then inserted in the rectum, gradually advanced into the cecum without any difficulty. Careful examination was performed as the scope was gradually being withdrawn. Ileocecal valve and the appendiceal orifice were visualized and appeared normal. Prep was excellent. Mucosa of the cecum, ascending colon, transverse colon, descending colon, sigmoid colon, and rectum appeared normal. Retroflexion was performed in the rectum and no lesions were seen. The patient tolerated the procedure well. IMPRESSION: Normal-appearing colon from rectum to cecum no evidence of colorectal neoplasia. RECOMMENDATIONS: Findings of this examination were discussed with the patient as well as his family. He was advised to have repeat screening colonoscopy in 10 years..
[2024-12-04 12:33] VITALS: BP 167/85; RESP 16
[2024-12-04 12:55] VITALS: PULSE 67
== END 2024-12-04 13:11 | disposition home or self-care (01) ==
LOC: ORWHC2ENDO 09:44
PROVIDERS: ATTEND Internal Medicine Gastroenterology
DX: Z12.11 Encounter for screening for malignant neoplasm of colon (principal); K21.9 Gastro-esophageal reflux disease without esophagitis; I10 Essential (primary) hypertension; E78.5 Hyperlipidemia, unspecified; J45.909 Unspecified asthma, uncomplicated; G47.33 Obstructive sleep apnea (adult) (pediatric); E11.9 Type 2 diabetes mellitus without complications; F32.A Depression, unspecified; F41.9 Anxiety disorder, unspecified; Z90.89 Acquired absence of other organs; Z79.84 Long term (current) use of oral hypoglycemic drugs; Z79.02 Long term (current) use of antithrombotics/antiplatelets; Z79.51 Long term (current) use of inhaled steroids; Z79.899 Other long term (current) drug therapy
CPT/HCPCS: 45378; J2003; J2704